=== PATIENT | female | born 1940 | race Caucasian/White ===

== ENCOUNTER 2019-10-12 08:30 | Emergency (ER) | payer BC, MEDICARE ==
[~2019-10-12] VITALS: Ht 170.2 cm; Wt 87.0 kg
[2019-10-12] MEDS ORDERED: BACITRACIN ZINC OINT UDPKT TOP ONE (09:30)
[2019-10-12] MEDS ORDERED: TETANUS, DIPHTHERIA, PERTUSSIS VAC/PF 0.5ML (>7YR OLD) IM ONE (09:30)
[2019-10-12] MEDS ORDERED: ACETAMINOPHEN 325MG TABLET PO ONE (09:30)
[2019-10-12] MEDS ORDERED: HYDROCODONE/ACETAMINOPHEN 5/325MG TABLET PO ONE (10:45)
[2019-10-12] MEDS ORDERED: LIDOCAINE HCL/PF 1% 10 MG/ML 5ML VIAL IJ ONE (10:45)
[2019-10-12 13:02] VITALS: BP 142/72
== END 2019-10-12 13:02 | disposition home or self-care (01) ==
LOC: ER 08:30
DX: S52.502A Unspecified fracture of the lower end of left radius, initial encounter for closed fracture (principal); S61.402A Unspecified open wound of left hand, initial encounter; J45.909 Unspecified asthma, uncomplicated; I10 Essential (primary) hypertension; E78.00 Pure hypercholesterolemia, unspecified; W01.0XXA Fall on same level from slipping, tripping and stumbling without subsequent striking against object, initial encounter; Y93.89 Activity, other specified; Y92.89 Other specified places as the place of occurrence of the external cause; Z87.891 Personal history of nicotine dependence; Z90.710 Acquired absence of both cervix and uterus; Z96.659 Presence of unspecified artificial knee joint; Z98.890 Other specified postprocedural states
CPT/HCPCS: 25605; 73090; 73100; 73110; 73130; 90471; 90715; 99284; J3490

== ENCOUNTER 2019-12-14 18:47 | Inpatient (IN) | payer MEDICARE, OTHER ==
[~2019-12-14] VITALS: Ht 170.2 cm; Wt 87.5 kg
[2019-12-14 20:00] VITALS: BP 155/64
[2019-12-14 21:00] VITALS: BP 147/66
[2019-12-14] MEDS ORDERED: TRAMADOL 50MG TABLET PO PRN (22:19)
[2019-12-14] MEDS: MONTELUKAST SODIUM 10MG TABLET PO SCH (22:34)
[2019-12-14] MEDS ORDERED: DILT240C91 MT (22:47)
[2019-12-14] MEDS ORDERED: AMLO5TAB4 MT (22:47)
[2019-12-14] MEDS ORDERED: OXYM30SP26 BOTHNSTRLS (22:47)
[2019-12-14] MEDS ORDERED: MONT10TA21 MT (22:47)
[2019-12-15] MEDS: IPRATROPIUM/ALBUTEROL 0.5-3(2.5)MG/3ML NEB HHN SCH ×7 (00:38→21:16)
[2019-12-15] MEDS: PANTOPRAZOLE 40MG DR TABLET PO SCH (06:18)
[2019-12-15 07:10] LABS: HEMATOCRIT. 41.3 % (36.0-48.0); HEMOGLOBIN. 12.7 g/dL (12.0-16.0); MEAN CORPUSCULAR HEMOGLOBIN 27.6 pg (28.0-32.0); MEAN CORPUSCULAR VOLUME 89.6 fL (81.0-99.0); MEAN PLATELET VOLUME 8.1 fl (7.4-10.4); PLATELET 187 x1000/uL (130-400); RED BLOOD CELL COUNT 4.61 mill/uL (4.2-5.4); RED CELL DISTRIBUTION WIDTH 16.1 % (11.6-14.6)
[2019-12-15] MEDS: BUDESONIDE 0.5MG/2ML NEB HHN SCH ×2 (07:24→21:16)
[2019-12-15 07:27] LABS: CHLORIDE 101 mEq/L (98-107)
[2019-12-15] MEDS ORDERED: DEXTROSE 50% WATER 50ML SYRINGE IV PRN (08:15)
[2019-12-15 08:23] VITALS: BP 129/70
[2019-12-15 08:50] VITALS: BP 162/92
[2019-12-15] MEDS: AMLODIPINE 5MG TABLET PO SCH (08:56)
[2019-12-15] MEDS: SPIRONOLACTONE 25MG TABLET PO SCH (08:57)
[2019-12-15] MEDS: DILTIAZEM HCL 120MG CAPSULE CD 24HR PO SCH (08:57)
[2019-12-15] MEDS: OXYMETAZOLINE HCL NASAL SPRAY 15ML BOTHNSTRLS SCH ×3 (08:59→21:46)
[2019-12-15] MEDS: INSULIN LISPRO 100 UNITS/ML SUBCUT SCH ×4 (09:13→21:57)
[2019-12-15] MEDS: BLOOD SUGAR DIAGNOSTIC STRIP TEST SCH ×4 (09:13→21:47)
[2019-12-15] MEDS: ENOXAPARIN 40MG/0.4ML SYR SUBCUT SCH (09:40)
[2019-12-15] MEDS ORDERED: IPRATROPIUM/ALBUTEROL 0.5-3(2.5)MG/3ML NEB HHN PRN (10:45)
[2019-12-15 11:14] LABS: PLATELET ESTIMATE NORMAL
[2019-12-15] MEDS: INSULIN GLARGINE UD 100 UNITS/ML SYR SUBCUT SCH (11:59)
[2019-12-15] MEDS ORDERED: ONDANSETRON HCL 4MG/2ML INJ IV PRN (14:45)
[2019-12-15] MEDS ORDERED: LORAZEPAM 0.5MG TABLET PO PRN (14:45)
[2019-12-15] MEDS ORDERED: CLONIDINE 0.1MG TABLET PO PRN (14:45)
[2019-12-15] MEDS ORDERED: BISACODYL 10MG SUPP PR PRN (14:45)
[2019-12-15 20:00] VITALS: BP 138/60
[2019-12-15] MEDS: MONTELUKAST SODIUM 10MG TABLET PO SCH (21:47)
[2019-12-15] MEDS: GUAIFENESIN 600MG ER TABLET PO SCH (21:47)
[2019-12-16] MEDS: IPRATROPIUM/ALBUTEROL 0.5-3(2.5)MG/3ML NEB HHN SCH ×6 (01:53→21:05)
[2019-12-16] MEDS: PANTOPRAZOLE 40MG DR TABLET PO SCH (06:05)
[2019-12-16] MEDS: BISACODYL 5MG TABLET PO PRN (06:05)
[2019-12-16] MEDS: BLOOD SUGAR DIAGNOSTIC STRIP TEST SCH ×4 (06:11→21:00)
[2019-12-16] MEDS: INSULIN LISPRO 100 UNITS/ML SUBCUT SCH ×4 (06:12→22:08)
[2019-12-16 08:00] VITALS: BP 119/57
[2019-12-16] MEDS: SPIRONOLACTONE 25MG TABLET PO SCH (08:18)
[2019-12-16] MEDS: AMLODIPINE 5MG TABLET PO SCH (08:19)
[2019-12-16] MEDS: GUAIFENESIN 600MG ER TABLET PO SCH ×2 (08:19→21:26)
[2019-12-16] MEDS: ENOXAPARIN 40MG/0.4ML SYR SUBCUT SCH (08:19)
[2019-12-16] MEDS: DILTIAZEM HCL 120MG CAPSULE CD 24HR PO SCH (08:19)
[2019-12-16] MEDS: OXYMETAZOLINE HCL NASAL SPRAY 15ML BOTHNSTRLS SCH ×2 (08:25→21:25)
[2019-12-16] MEDS: BUDESONIDE 0.5MG/2ML NEB HHN SCH ×2 (09:03→21:04)
[2019-12-16] MEDS: INSULIN GLARGINE UD 100 UNITS/ML SYR SUBCUT SCH (11:31)
[2019-12-16] MEDS ORDERED: NA PHOS,M-B/NA PHOS,DI-BA ENEMA 118ML PR NR (15:45)
[2019-12-16] MEDS: DOCUSATE SODIUM 100MG CAPSULE PO SCH (16:11)
[2019-12-16 20:00] VITALS: BP 121/58
[2019-12-16] MEDS: MONTELUKAST SODIUM 10MG TABLET PO SCH (21:26)
[2019-12-17] MEDS: IPRATROPIUM/ALBUTEROL 0.5-3(2.5)MG/3ML NEB HHN SCH ×6 (00:50→20:09)
[2019-12-17] MEDS: BLOOD SUGAR DIAGNOSTIC STRIP TEST SCH ×4 (07:25→20:52)
[2019-12-17] MEDS: PANTOPRAZOLE 40MG DR TABLET PO SCH (07:25)
[2019-12-17 07:53] VITALS: BP 131/65
[2019-12-17] MEDS: ENOXAPARIN 40MG/0.4ML SYR SUBCUT SCH (08:59)
[2019-12-17] MEDS: DOCUSATE SODIUM 100MG CAPSULE PO SCH ×2 (09:00→17:01)
[2019-12-17] MEDS: DILTIAZEM HCL 120MG CAPSULE CD 24HR PO SCH (09:00)
[2019-12-17] MEDS: AMLODIPINE 5MG TABLET PO SCH (09:00)
[2019-12-17] MEDS: GUAIFENESIN 600MG ER TABLET PO SCH ×2 (09:00→20:52)
[2019-12-17] MEDS: OXYMETAZOLINE HCL NASAL SPRAY 15ML BOTHNSTRLS SCH ×2 (09:00→20:52)
[2019-12-17] MEDS: INSULIN LISPRO 100 UNITS/ML SUBCUT SCH ×4 (09:00→21:02)
[2019-12-17] MEDS: SPIRONOLACTONE 25MG TABLET PO SCH (09:00)
[2019-12-17] MEDS: BUDESONIDE 0.5MG/2ML NEB HHN SCH ×2 (09:17→20:09)
[2019-12-17] MEDS: INSULIN GLARGINE UD 100 UNITS/ML SYR SUBCUT SCH (11:06)
[2019-12-17 20:00] VITALS: BP 105/46
[2019-12-17] MEDS: MONTELUKAST SODIUM 10MG TABLET PO SCH (20:52)
[2019-12-18] MEDS: IPRATROPIUM/ALBUTEROL 0.5-3(2.5)MG/3ML NEB HHN SCH ×7 (00:17→23:48)
[2019-12-18] MEDS: BLOOD SUGAR DIAGNOSTIC STRIP TEST SCH ×4 (06:05→21:43)
[2019-12-18] MEDS: INSULIN LISPRO 100 UNITS/ML SUBCUT SCH ×4 (06:09→22:08)
[2019-12-18 08:00] VITALS: BP 130/55
[2019-12-18] MEDS: BUDESONIDE 0.5MG/2ML NEB HHN SCH (08:14)
[2019-12-18] MEDS: ENOXAPARIN 40MG/0.4ML SYR SUBCUT SCH (08:39)
[2019-12-18] MEDS: SPIRONOLACTONE 25MG TABLET PO SCH (08:40)
[2019-12-18] MEDS: AMLODIPINE 5MG TABLET PO SCH (08:40)
[2019-12-18] MEDS: FAMOTIDINE 20MG TABLET PO SCH (08:40)
[2019-12-18] MEDS: DILTIAZEM HCL 120MG CAPSULE CD 24HR PO SCH (08:40)
[2019-12-18] MEDS: GUAIFENESIN 600MG ER TABLET PO SCH ×2 (08:40→22:07)
[2019-12-18] MEDS: DOCUSATE SODIUM 100MG CAPSULE PO SCH ×2 (08:41→17:25)
[2019-12-18] MEDS: INSULIN GLARGINE UD 100 UNITS/ML SYR SUBCUT SCH (09:24)
[2019-12-18 20:00] VITALS: BP 120/49
[2019-12-18] MEDS: MONTELUKAST SODIUM 10MG TABLET PO SCH (22:07)
[2019-12-19] MEDS: IPRATROPIUM/ALBUTEROL 0.5-3(2.5)MG/3ML NEB HHN SCH ×5 (04:34→21:26)
[2019-12-19] MEDS: BLOOD SUGAR DIAGNOSTIC STRIP TEST SCH ×4 (06:53→21:00)
[2019-12-19] MEDS: INSULIN LISPRO 100 UNITS/ML SUBCUT SCH ×4 (07:22→22:06)
[2019-12-19 07:43] VITALS: BP 135/56
[2019-12-19] MEDS: AMLODIPINE 5MG TABLET PO SCH (08:04)
[2019-12-19] MEDS: GUAIFENESIN 600MG ER TABLET PO SCH ×2 (08:04→22:03)
[2019-12-19] MEDS: FAMOTIDINE 20MG TABLET PO SCH (08:04)
[2019-12-19] MEDS: DILTIAZEM HCL 120MG CAPSULE CD 24HR PO SCH (08:04)
[2019-12-19] MEDS: SPIRONOLACTONE 25MG TABLET PO SCH (08:05)
[2019-12-19] MEDS: DOCUSATE SODIUM 100MG CAPSULE PO SCH ×2 (08:05→16:12)
[2019-12-19] MEDS: ENOXAPARIN 40MG/0.4ML SYR SUBCUT SCH (08:06)
[2019-12-19] MEDS: INSULIN GLARGINE UD 100 UNITS/ML SYR SUBCUT SCH (09:36)
[2019-12-19] MEDS: ACETYLCYSTEINE 100MG/ML 10% VIAL 4ML INH SCH (16:50)
[2019-12-19 20:00] VITALS: BP 134/70
[2019-12-19] MEDS: MONTELUKAST SODIUM 10MG TABLET PO SCH (22:03)
[2019-12-20] MEDS: ACETYLCYSTEINE 100MG/ML 10% VIAL 4ML INH SCH ×3 (00:05→16:06)
[2019-12-20] MEDS: IPRATROPIUM/ALBUTEROL 0.5-3(2.5)MG/3ML NEB HHN SCH ×6 (00:05→20:56)
[2019-12-20 06:41] LABS: HEMATOCRIT. 31.1 % (36.0-48.0); MEAN CORPUSCULAR HEMOGLOBIN 28.1 pg (28.0-32.0); MEAN CORPUSCULAR VOLUME 87.1 fL (81.0-99.0); MEAN PLATELET VOLUME 8.6 fl (7.4-10.4); PLATELET 103 x1000/uL (130-400); RED BLOOD CELL COUNT 3.57 mill/uL (4.2-5.4); RED CELL DISTRIBUTION WIDTH 15.8 % (11.6-14.6)
[2019-12-20] MEDS: INSULIN LISPRO 100 UNITS/ML SUBCUT SCH ×4 (06:52→21:43)
[2019-12-20] MEDS: BLOOD SUGAR DIAGNOSTIC STRIP TEST SCH ×4 (06:52→21:42)
[2019-12-20 07:31] VITALS: BP 169/54
[2019-12-20] MEDS: AMLODIPINE 5MG TABLET PO SCH (08:16)
[2019-12-20] MEDS: GUAIFENESIN 600MG ER TABLET PO SCH ×2 (08:16→21:42)
[2019-12-20] MEDS: SPIRONOLACTONE 25MG TABLET PO SCH (08:16)
[2019-12-20] MEDS: DOCUSATE SODIUM 100MG CAPSULE PO SCH ×2 (08:16→17:30)
[2019-12-20] MEDS: FAMOTIDINE 20MG TABLET PO SCH (08:16)
[2019-12-20] MEDS: DILTIAZEM HCL 120MG CAPSULE CD 24HR PO SCH (08:17)
[2019-12-20] MEDS: ENOXAPARIN 40MG/0.4ML SYR SUBCUT SCH (08:20)
[2019-12-20] MEDS: BISACODYL 5MG TABLET PO PRN (10:34)
[2019-12-20] MEDS: INSULIN GLARGINE UD 100 UNITS/ML SYR SUBCUT SCH (10:40)
[2019-12-20] MEDS: ACETAMINOPHEN 325MG TABLET PO PRN (11:45)
[2019-12-20 11:51] LABS: ATYPICAL LYMPHOCYTES 1; PLATELET ESTIMATE SLIGHTLY DECREASED
[2019-12-20 20:00] VITALS: BP 145/50
[2019-12-20] MEDS: LACTULOSE 20G/30ML UDC PO SCH (21:42)
[2019-12-20] MEDS: MONTELUKAST SODIUM 10MG TABLET PO SCH (21:42)
[2019-12-21] MEDS: IPRATROPIUM/ALBUTEROL 0.5-3(2.5)MG/3ML NEB HHN SCH ×6 (00:43→20:02)
[2019-12-21] MEDS: ACETYLCYSTEINE 100MG/ML 10% VIAL 4ML INH SCH ×3 (00:43→15:15)
[2019-12-21] MEDS: LACTULOSE 20G/30ML UDC PO SCH ×2 (04:00)
[2019-12-21] MEDS: BLOOD SUGAR DIAGNOSTIC STRIP TEST SCH ×4 (06:31→21:00)
[2019-12-21] MEDS: INSULIN LISPRO 100 UNITS/ML SUBCUT SCH ×4 (06:33→22:22)
[2019-12-21 07:52] LABS: HEMATOCRIT. 33.2 % (36.0-48.0); HEMOGLOBIN. 10.5 g/dL (12.0-16.0); MEAN CORPUSCULAR HEMOGLOBIN 27.8 pg (28.0-32.0); MEAN PLATELET VOLUME 8.2 fl (7.4-10.4); PLATELET 148 x1000/uL (130-400); RED BLOOD CELL COUNT 3.78 mill/uL (4.2-5.4); RED CELL DISTRIBUTION WIDTH 16.1 % (11.6-14.6)
[2019-12-21 08:09] VITALS: BP 131/68
[2019-12-21] MEDS: DILTIAZEM HCL 120MG CAPSULE CD 24HR PO SCH (08:27)
[2019-12-21] MEDS: DOCUSATE SODIUM 100MG CAPSULE PO SCH ×2 (08:27→16:27)
[2019-12-21] MEDS: SPIRONOLACTONE 25MG TABLET PO SCH (08:28)
[2019-12-21] MEDS: AMLODIPINE 5MG TABLET PO SCH (08:28)
[2019-12-21] MEDS: GUAIFENESIN 600MG ER TABLET PO SCH ×2 (08:28→22:12)
[2019-12-21] MEDS: FAMOTIDINE 20MG TABLET PO SCH (08:28)
[2019-12-21] MEDS: ENOXAPARIN 40MG/0.4ML SYR SUBCUT SCH (08:28)
[2019-12-21] MEDS: ACETAMINOPHEN 325MG TABLET PO PRN (10:22)
[2019-12-21] MEDS: INSULIN GLARGINE UD 100 UNITS/ML SYR SUBCUT SCH (10:50)
[2019-12-21 19:36] LABS: PLATELET ESTIMATE NORMAL
[2019-12-21 20:00] VITALS: BP 149/50
[2019-12-21] MEDS: MONTELUKAST SODIUM 10MG TABLET PO SCH (22:12)
[2019-12-22] MEDS: ACETYLCYSTEINE 100MG/ML 10% VIAL 4ML INH SCH ×3 (00:15→15:18)
[2019-12-22] MEDS: IPRATROPIUM/ALBUTEROL 0.5-3(2.5)MG/3ML NEB HHN SCH ×6 (00:15→21:07)
[2019-12-22 07:45] VITALS: BP 139/56
[2019-12-22] MEDS: AMLODIPINE 5MG TABLET PO SCH (08:28)
[2019-12-22] MEDS: SPIRONOLACTONE 25MG TABLET PO SCH (08:28)
[2019-12-22] MEDS: DILTIAZEM HCL 120MG CAPSULE CD 24HR PO SCH (08:28)
[2019-12-22] MEDS: DOCUSATE SODIUM 100MG CAPSULE PO SCH ×2 (08:29→16:32)
[2019-12-22] MEDS: ENOXAPARIN 40MG/0.4ML SYR SUBCUT SCH (08:29)
[2019-12-22] MEDS: GUAIFENESIN 600MG ER TABLET PO SCH ×2 (08:29→20:12)
[2019-12-22] MEDS: INSULIN LISPRO 100 UNITS/ML SUBCUT SCH ×4 (08:30→20:24)
[2019-12-22] MEDS: FAMOTIDINE 20MG TABLET PO SCH (08:30)
[2019-12-22] MEDS: INSULIN GLARGINE UD 100 UNITS/ML SYR SUBCUT SCH (09:32)
[2019-12-22] MEDS: BLOOD SUGAR DIAGNOSTIC STRIP TEST SCH ×3 (11:49→20:13)
[2019-12-22 12:46] LABS: HEMATOCRIT. 32.6 % (36.0-48.0); HEMOGLOBIN. 10.5 g/dL (12.0-16.0); MEAN CORPUSCULAR HEMOGLOBIN 28.1 pg (28.0-32.0); MEAN CORPUSCULAR VOLUME 87.3 fL (81.0-99.0); MEAN PLATELET VOLUME 7.3 fl (7.4-10.4); PLATELET 150 x1000/uL (130-400); RED BLOOD CELL COUNT 3.74 mill/uL (4.2-5.4); RED CELL DISTRIBUTION WIDTH 16.1 % (11.6-14.6)
[2019-12-22 12:56] LABS: CHLORIDE 100 mEq/L (98-107)
[2019-12-22 13:46] LABS: PLATELET ESTIMATE NORMAL
[2019-12-22] MEDS: ACETAMINOPHEN 325MG TABLET PO PRN (14:12)
[2019-12-22] MEDS ORDERED: POTASSIUM CHLORIDE 20MEQ TABLET SR PO NR (14:15)
[2019-12-22] MEDS ORDERED: FUROSEMIDE 40MG TABLET PO NR (16:15)
[2019-12-22 20:00] VITALS: BP 124/63
[2019-12-22] MEDS: MONTELUKAST SODIUM 10MG TABLET PO SCH (20:12)
[2019-12-23] MEDS: ACETYLCYSTEINE 100MG/ML 10% VIAL 4ML INH SCH ×2 (00:52→10:00)
[2019-12-23] MEDS: IPRATROPIUM/ALBUTEROL 0.5-3(2.5)MG/3ML NEB HHN SCH ×3 (00:52→10:00)
[2019-12-23] MEDS: BLOOD SUGAR DIAGNOSTIC STRIP TEST SCH ×2 (05:57→11:36)
[2019-12-23] MEDS: INSULIN LISPRO 100 UNITS/ML SUBCUT SCH ×2 (06:03→12:23)
[2019-12-23 06:10] LABS: HEMATOCRIT. 28.4 % (36.0-48.0); HEMOGLOBIN. 9.2 g/dL (12.0-16.0); MEAN CORPUSCULAR VOLUME 86.9 fL (81.0-99.0); MEAN PLATELET VOLUME 7.3 fl (7.4-10.4); PLATELET 148 x1000/uL (130-400); RED BLOOD CELL COUNT 3.27 mill/uL (4.2-5.4)
[2019-12-23 08:05] VITALS: BP 168/69
[2019-12-23] MEDS: GUAIFENESIN 600MG ER TABLET PO SCH (08:21)
[2019-12-23] MEDS: DOCUSATE SODIUM 100MG CAPSULE PO SCH (08:21)
[2019-12-23] MEDS: SPIRONOLACTONE 25MG TABLET PO SCH (08:22)
[2019-12-23] MEDS: AMLODIPINE 5MG TABLET PO SCH (08:22)
[2019-12-23] MEDS: FAMOTIDINE 20MG TABLET PO SCH (08:22)
[2019-12-23] MEDS: ENOXAPARIN 40MG/0.4ML SYR SUBCUT SCH (08:23)
[2019-12-23] MEDS: DILTIAZEM HCL 120MG CAPSULE CD 24HR PO SCH (08:23)
[2019-12-23 08:51] VITALS: BP_SYST 145; BP_SYST 168; BP_DIAS 66; BP_DIAS 69
[2019-12-23] MEDS ORDERED: INSULIN GLARGINE UD 100 UNITS/ML SYR SUBCUT SCH (10:00)
[2019-12-23 18:08] LABS: VITAMIN B12 SERUM 1625 pg/mL (211-911)
[2019-12-24 05:22] LABS: PLATELET ESTIMATE NORMAL
== END 2019-12-23 14:15 | disposition home health service (06) | DRG 189 ==
PROVIDERS: ADMIT Psychiatry & Neurology Neurology; ATTEND Internal Medicine Critical Care Medicine
DX: J96.02 Acute respiratory failure with hypercapnia (principal); J44.1 Chronic obstructive pulmonary disease with (acute) exacerbation; C91.10 Chronic lymphocytic leukemia of B-cell type not having achieved remission; E87.2 Acidosis; I25.10 Atherosclerotic heart disease of native coronary artery without angina pectoris; E11.65 Type 2 diabetes mellitus with hyperglycemia; E78.5 Hyperlipidemia, unspecified; I11.0 Hypertensive heart disease with heart failure; K21.9 Gastro-esophageal reflux disease without esophagitis; K76.0 Fatty (change of) liver, not elsewhere classified; I48.91 Unspecified atrial fibrillation; I50.9 Heart failure, unspecified; M19.90 Unspecified osteoarthritis, unspecified site; Z90.710 Acquired absence of both cervix and uterus
CPT/HCPCS: 36415; 71045; 80048; 82607; 82962; 83036; 83735; 84443; 84484; 85025; 93005; 93306; 93970; 94640; 97110; 97116; 97162; 97166; 97530; 97535; J1650; J1815; J7608; J7626